=== PATIENT | male | born 1950 | race African-American/Black ===

== ENCOUNTER 2018-06-15 09:07 | Emergency (ER) | payer MEDICARE, MEDICAID ==
[~2018-06-15] VITALS: Ht 190.5 cm; Wt 93.0 kg
[2018-06-15] MEDS ORDERED: MORPHINE SULFATE 10 MG/ML CPJ IM ONE (10:30)
[2018-06-15] MEDS ORDERED: ONDANSETRON 4MG ODT PO ONE (10:30)
[2018-06-15] MEDS ORDERED: CLONIDINE 0.1MG TABLET PO ONE (11:45)
[2018-06-15 12:44] VITALS: BP 193/83
== END 2018-06-15 13:00 | disposition home or self-care (01) ==
LOC: ER 09:07
DX: S49.81XA Other specified injuries of right shoulder and upper arm, initial encounter (principal); I10 Essential (primary) hypertension; W01.0XXA Fall on same level from slipping, tripping and stumbling without subsequent striking against object, initial encounter; Y93.89 Activity, other specified; Y92.89 Other specified places as the place of occurrence of the external cause; Y99.8 Other external cause status; Z87.891 Personal history of nicotine dependence
CPT/HCPCS: 29105; 71045; 73030; 73080; 96372; 99283; J2270; Q0162